=== PATIENT | male | born 1970 | race African-American/Black ===

== ENCOUNTER 2025-06-20 13:02 | Outpatient (REF) | payer OTHER, SELFPAY ==
[2025-06-27 05:43] LABS: Plasma Renin Activity 0.28 ng/mL/h (0.25-5.82)
== END 2025-06-20 13:03 | disposition home or self-care (01) ==
LOC: HO.HKASLDS 13:02
PROVIDERS: PCP Internal Medicine; Visit Provider Internal Medicine Nephrology
DX: I10 Essential (primary) hypertension (principal)
CPT/HCPCS: 36415; 82088; 82533; 84244; 84443

== ENCOUNTER 2025-06-20 13:02 | Outpatient (AMB) | payer OTHER, SELFPAY ==
[2025-06-20 13:33] VITALS: BP 132/90; PULSE 65; O2SAT 98; BMI 28.1
--- NOTE | 2025-06-20 13:33 | HO.NEPHOV_ITS ---
Vital Signs 06/20/25 13:33 Height 6 ft 1 in Weight 213 lb 6 oz BMI 28.1 BP 132/90 H Blood Pressure Location Lt brachial Position Sitting Pulse 65 Pulse Source Pulse Oximeter Pulse Oximetry (%) 98 Oxygen Delivery Method Room Air Intake Visit Reasons: ENP: Hypertension Studio Receptionist Required: No Accompanied by: Self / Same As Patient Allergies No Known Allergies Allergy (Verified 06/20/25 13:37) HPI Comments Details: I had the pleasure of seeing Dr Muniz in consultation for labile blood pressure. 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 He has been on multiple BP medications but the BP has been labile lately. He has no H/O hypokalemia, abnormal thyroid function or renal dysfunction. He has no H/O LVH, proteinuria, retinopathy, CAD, PAD, CVA, CHF or known SARBJIT. He has SOLIS and is on CPAP. He is active and is good with low sodium diet. He denies chest pain, weakness, palpitations, edema or orthostatic symptoms. He monitors his BP at home. [facility] Medical History (Updated 06/20/25 @ 13:40 by Lena Fuller MA) Prediabetes SOLIS (obstructive sleep apnea) Hypertension Family History Mother Hypertension Social History (Updated 06/20/25 @ 13:36 by Lena Fuller MA) Alcohol intake: never Patient Tobacco Use Status: Never used Tobacco Review of Systems Const All systems reviewed & are unremarkable except as noted in HPI and below Physical Exam Vital Signs: Last Vital Signs Pulse 65 06/20/25 13:33 BP 132/90 H 06/20/25 13:33 Pulse Ox 98 06/20/25 13:33 Oxygen Delivery Method Room Air 06/20/25 13:33 BMI result Body Mass Index 28.1 Const General: comfortable and no acute distress Orientation/consciousness: patient oriented x3 HEENT Head: Yes normocephalic Mouth: Normal oral and palatal mucosa present Eyes EOM: EOMs intact bilaterally Neck Neck: Yes supple Resp Auscultation: clear to auscultation bilaterally Cardio Jugular venous distension: no JVD Rate: regular rate Heart sounds: Murmur heart sound present GI Palpation (GI): Soft to palpation Auscultation: normal bowel sounds General: Yes no CVA tenderness Back/Spine/Pelvis Back: no CVA tenderness Skin General skin exam: no rashes or lesions noted Neuro General: patient oriented x3 and moves all extremities Extrem General: Yes no pedal edema Assessment & Plan Assessment & Plan (1) Hypertension: Code(s): I10 - Essential (primary) hypertension Category: Medical Qualifiers: Hypertension type: primary hypertension Qualified Code(s): I10 - Essential (primary) hypertension Plan Dr Muniz has hypertension since age of 31 years and is on multiple anti hypertensive medications. He has SOLIS and is on CPAP. He is active and is good with low sodium diet. He has no H/O thyroid disorder , hypokalemia or renal dysfunction. There is no documented evidence regarding proteinuria, LVH, retinopathy or renal dysfunction. I have ordered W/U including biobeat 24 hour BPM. I did not make any medication change today but further optimization of medication is pending evolving data. Answered all questions; F/U given Orders: Orders US renal doppler 3 Weeks I10 - Essential (primary) hypertension Renin 06/20/25 I10 - Essential (primary) hypertension TSH reflex Free T4 06/20/25 I10 - Essential (primary) hypertension US renal BI 3 Weeks I10 - Essential (primary) hypertension Aldost/Renin 06/20/25 I10 - Essential (primary) hypertension Aldosterone 06/20/25 I10 - Essential (primary) hypertension Cortisol Random 06/20/25 I10 - Essential (primary) hypertension AMB 24 HR B/P Monitor PLACEMENT 06/20/25 I10 - Essential (primary) hypertension Coding Level of Care Code New Pt Level 4 (89812) Diagnoses Primary hypertension I10 Hypertension type: primary hypertension
--- OUTSIDE RECORDS SUMMARY | 2025-06-20 13:48 | XMS_ITS ---
Author Name [facility] Organization Unknown History of Medication Use Medication Directions Dispensed Refills Start Date End Date [facility] amlodipine 10 mg-benazepril 20 mg capsule TAKE 1 CAPSULE BY MOUTH EVERY DAY 05/30/20 25 completed amoxicillin 875 mg-potassium clavulanate 125 mg tablet TAKE 1 TABLET BY MOUTH TWICE A DAY 05/30/20 25 completed benzonatate 100 mg capsule TAKE 2 CAPSULES BY MOUTH THREE TIMES PER DAY 05/30/20 25 completed candesartan 4 mg tablet TAKE 1 TABLET BY MOUTH EVERY DAY 05/30/20 25 completed doxycycline monohydrate 100 mg tablet TAKE 1 TABLET BY MOUTH TWICE A DAY 05/30/20 25 completed fluconazole 150 mg tablet TAKE 1 TABLET DAILY 05/30/20 25 completed hydrochlorothiazide 25 mg tablet TAKE 1 TABLET BY MOUTH EVERY DAY 05/30/20 25 completed levofloxacin 500 mg tablet TAKE 1 TABLET BY MOUTH EVERY DAY FOR 14 DAYS 05/30/20 25 completed metformin 850 mg tablet TAKE 1 TABLET BY MOUTH EVERY DAY IN THE MORNING 05/30/20 25 completed ofloxacin 0.3 % ear drops INSTILL 5 DROPS INTO AFFECTED EAR(S) 3 TIMES A DAY DIRECTED 05/30/20 25 completed trazodone 50 mg tablet TAKE 1 TO 2 TABLETS BY MOUTH EVERY DAY AT BEDTIME NEEDED FOR SLEEP 05/30/20 25 completed amlodipine 10 mg tablet TAKE 1 TABLET BY MOUTH EVERY DAY active atenolol 50 mg tablet TAKE 1.5 TABLETS BY MOUTH EVERY DAY active lisinopril 20 mg tablet TAKE 2 TABLETS BY MOUTH EVERY DAY active Problems Problem Status Onset Date Problem Type Date of Resoluti on Source Benign prostatic hyperplasia with outflow obstruction active 2025-05-30 ProblemAct [facility] Microscopic hematuria active 2025-05-30 ProblemAct [facility] Urgent desire to urinate active 2025-05-30 ProblemAct [facility] Encounters Encounter Type Encounter Reason Primary Diagnosis Location Date [facility], 02/2025 [facility]ulatory [facility] 080 02/2025 [facility]ulatory [facility] 0802/2025 [facility]ulatory [facility] 0801/2025 [facility]ulatory [facility] 01/2025 [facility]ulatory [facility] 04/26 [facility]ulatory [facility] 04/26 [facility]ulatory [facility] 04/26 [facility]ulatory [facility] 04/26 Care Team Organization Name Specialty Phone Email Start Date End Da te [facility] 05/15/2025
--- OUTSIDE RECORDS SUMMARY | 2025-06-20 13:48 | XMS_ITS | Encounter Summary ---
Author Organization [employer] Address [address] [place] [address] Care Team Providers Care Sap Analyst Name Role Phone Physician, Pcp Unknown Primary Care Provider Azul vailable Encounter Details Date Type Department Care Team (Late st Contact Info) Description 05/30/2025 Lab Requisition [facility] Main Lab [address] [place] [address] Joe Her MD [address] [place] [address] Other microscopic hematuria Social History Tobacco Use Types Packs/Day Years Used Date Smoking Tobacco: Never Assessed Sex and Gender Information Value Date Recorded Sex Assigned at Not on file Legal Sex Male 7:40 PM EDT Gender Identity Not on file Sexual Orientation Not on file documented as of this encounter Plan of Treatment Not on file documented as of this encounter Procedures Procedure Name Priority Date/Time Associated Diagnosis Comments URINALYSIS WITH REFLEX MICROSCOPIC AND CULTURE Routine 05/30/2025 1:20 PM EDT Other microscopic hematuria URINALYSIS WITH REFLEX MICROSCOPIC AND CULTURE Routine 05/30/2025 1:20 PM EDT Other microscopic hematuria documented in this encounter Results * (ABNORMAL) Urinalysis with reflex microscopic and culture (05/30/2025 1:20 PM EDT) Color, Urine Yellow Yellow, Colorless LAB URINALYSIS - AUTOMATED METHOD 05/30/2025 7:52 PM EDT [facility] Clarity, Urine Clear Clear LAB URINALYSIS - AUTOMATED METHOD 05/30/2025 7:52 PM EDT [facility] Specific [place] Urine 1.027 1.005 - 1.030 LAB URINALYSIS - AUTOMATED METHOD 05/30/2025 7:52 PM EDT [facility] pH, Urine 5.0(A) 5.0 - 8.0 pH LAB URINALYSIS - AUTOMATED METHOD 05/30/2025 7:52 PM EDT [facility] Leukocytes, Urine Negative Negative WBCs/mcL LAB URINALYSIS - AUTOMATED METHOD 05/30/2025 7:52 PM EDT [facility] Nitrite, Urine Negative Negative LAB URINALYSIS - AUTOMATED METHOD 05/30/2025 7:52 PM EDT [facility] Protein, Urine Negative Negative mg/dL LAB URINALYSIS - AUTOMATED METHOD 05/30/2025 7:52 PM EDT [facility] Glucose, Urine Negative Negative mg/dL LAB URINALYSIS - AUTOMATED METHOD 05/30/2025 7:52 PM EDT [facility] Ketones, Urine Negative Negative mg/dL LAB URINALYSIS - AUTOMATED METHOD 05/30/2025 7:52 PM EDT [facility] Blood, Urine Negative Negative mg/dL LAB URINALYSIS - AUTOMATED METHOD 05/30/2025 7:52 PM EDT [facility] Urine Urine specimen obtained by clean catch procedure / Unknown 05/30/2025 1:20 PM EDT 05/30/2025 7:43 PM EDT Joe Her MD LAB URINE ORDERABLES Final R esult [facility] [address] [place] [address], [place] [phone] documented in this encounter Visit Diagnoses Diagnosis Other microscopic hematuria documented in this encounter Care Teams Sap Analyst Relationship Specialty Start Date End Date Physician, Pcp Unknown PCP - General 05/30/25 documented as of this encounter
--- OUTSIDE RECORDS SUMMARY | 2025-06-20 13:48 | XMS_ITS | Clinical Summary ---
Author Organization [facility] Address [address] [place] [address] Phone Care Team Providers Care Distributor Publications Name Role Phone Physician, Pcp Unknown Primary Care Provider Azul vailable Encounters Date Type Department Care Team Description 05/30/2025 Lab Requisition [facility] Main Lab [address] [place] [address] Joe Her MD Other microscopic hematuria from Last 3 Months Social History Tobacco Use Types Packs/Day Years Used Date Smoking Tobacco: Never Assessed Sex and Gender Information Value Date Recorded Sex Assigned at Not on file Legal Sex Male 7:40 PM EDT Gender Identity Not on file Sexual Orientation Not on file Plan of Treatment Health Maintenance Due Date Last Done Comments DTaP,Tdap,and Td Vaccines (1 - Tdap) 1990 Hepatitis B Vaccines (1 of 3 - 19+ 3-dose series) 1990 Pneumococcal Vaccine: 50+ Ye ars (1 of 1 - PCV) 2021 Zoster Vaccines (1 of 2) 2021 COVID-19 Vaccine ( - 2023-2 5 season) 2024 Depression Screening 10/26/2024 Cholesterol Screening (Lipid Panel) 05/31/2025 Colorectal Cancer Screening: Colonoscopy 05/31/2025 HIV Screening 05/31/2025 Hepatitis C Screening 05/31/2025 Social Influencers of Health Screening 05/31/2025 Influenza Vaccine (#1) 2025 HIB Vaccines Aged Out No longer eligi ble based on patient's age to complete this topic HPV Vaccines Aged Out No longer eligi ble based on patient's age to complete this topic Hepatitis A Vaccines Aged Out No long er eligible based on patient's age to complete this topic IPV Vaccines Aged Out No longer eligi ble based on patient's age to complete this topic MMR Vaccines Aged Out No longer eligi ble based on patient's age to complete this topic Meningococcal ACWY Vaccine Aged Out N o longer eligible based on patient's age to complete this topic Meningococcal B Vaccine Aged Out No l onger eligible based on patient's age to complete this topic RSV Immunization Patients Un sarina 20 months Aged Out No longer eligible b ased on patient's age to complete this topic Varicella Vaccines Aged Out No longer eligible based on patient's age to complete this topic Procedures Procedure Name Priority Date/Time Associated Diagnosis Comments URINALYSIS WITH REFLEX MICROSCOPIC AND CULTURE Routine 05/30/2025 1:20 PM EDT Other microscopic hematuria URINALYSIS WITH REFLEX MICROSCOPIC AND CULTURE Routine 05/30/2025 1:20 PM EDT Other microscopic hematuria from Last 3 Months Results * (ABNORMAL) Urinalysis with reflex microscopic and culture (05/30/2025 1:20 PM EDT) Color, Urine Yellow Yellow, Colorless LAB URINALYSIS - AUTOMATED METHOD 05/30/2025 7:52 PM EDT [facility] Clarity, Urine Clear Clear LAB URINALYSIS - AUTOMATED METHOD 05/30/2025 7:52 PM EDT [facility] Specific [place] Urine 1.027 1.005 - 1.030 LAB URINALYSIS - AUTOMATED METHOD 05/30/2025 7:52 PM [facility] pH, Urine 5.0(A) 5.0 - 8.0 pH LAB URINALYSIS - AUTOMATED METHOD 05/30/2025 7:52 PM T [facility] Leukocytes, Urine Negative Negative WBCs/mcL LAB URINALYSIS - AUTOMATED METHOD 05/30/2025 7:52 PM EDT [facility] Nitrite, Urine Negative Negative LAB URINALYSIS - AUTOMATED METHOD 05/30/2025 7:52 PM T [facility] Protein, Urine Negative Negative mg/dL LAB URINALYSIS - AUTOMATED METHOD 05/30/2025 7:52 PM EDT [facility] Glucose, Urine Negative Negative mg/dL LAB URINALYSIS - AUTOMATED METHOD 05/30/2025 7:52 PM EDT [facility] Ketones, Urine Negative Negative mg/dL LAB URINALYSIS - AUTOMATED METHOD 05/30/2025 7:52 PM EDT [facility] Blood, Urine Negative Negative mg/dL LAB URINALYSIS - AUTOMATED METHOD 05/30/2025 7:52 PM EDT [facility] Urine Urine specimen obtained by clean catch procedure / Unknown 05/30/2025 1:20 PM EDT 05/30/2025 7:43 PM EDT Joe Her MD LAB URINE ORDERABLES Final R esult [facility] [address] [place] [address], [place] [phone] from Last 3 Months Insurance [employer] Care Teams Distributor Publications Relationship Specialty Start Date End Date Physician, Pcp Unknown PCP - General 05/30/25
== END 2025-06-20 14:52 | disposition home or self-care (01) ==
LOC: HO.HKAS 13:03
PROVIDERS: PCP Internal Medicine; Visit Provider Internal Medicine Nephrology
DX: I10 Essential (primary) hypertension (principal)
CPT/HCPCS: 99204

== ENCOUNTER → 2025-06-21 14:06 | Outpatient (BNVA) | payer OTHER, SELFPAY | PROVIDERS: PCP Internal Medicine; Visit Provider Internal Medicine Nephrology | DX: I10 Essential (primary) hypertension (principal) | CPT/HCPCS: 93786; 93788 ==

== ENCOUNTER 2025-07-07 14:06 | Outpatient (AMB) | payer OTHER, SELFPAY ==
--- NOTE | 2025-07-07 14:21 | HO.NEPHOV_ITS ---
Vital Signs 3 07/07/25 14:22 Height 6 ft 1 in Weight 213 lb BMI 28.1 BP 136/70 Blood Pressure Location Lt brachial Position Sitting Pulse 71 Pulse Source Pulse Oximeter Pulse Oximetry (%) 98 Oxygen Delivery Method Room Air Intake Visit Reasons: 2wk f/u-Conf w/ Chiropractic Practice Manager Required: No Accompanied by: Spouse Allergies No Known Allergies Allergy (Verified 07/07/25 14:21) Medication List - Last Reconciled 07/07/25 by Negrito Kevin MD amlodipine 10 mg PO DAILY atenolol 75 mg PO DAILY lisinopril 20 mg PO DAILY HPI Comments Details: I had the pleasure of seeing Dr Muniz in follow up for labile blood pressure. 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 He has been on multiple BP medications but the BP has been labile lately. He has no H/O hypokalemia, abnormal thyroid function or renal dysfunction. He has no H/O LVH, proteinuria, retinopathy, CAD, PAD, CVA, CHF or known SARBJIT. He has SOLIS and is on CPAP. He is active and is good with low sodium diet. He denies chest pain, weakness, palpitations, edema or orthostatic symptoms. He monitors his BP at home. He had a 24 hour BPM which showed well controlled BP. [facility] Medical History (Updated 06/20/25 @ 13:40 by Lena Fuller MA) Prediabetes SOLIS (obstructive sleep apnea) Hypertension Family History Mother Hypertension Social History Alcohol intake: never Patient Tobacco Use Status: Never used Tobacco Review of Systems Const All systems reviewed & are unremarkable except as noted in HPI and below Physical Exam Vital Signs: Last Vital Signs Pulse 71 07/07/25 14:22 BP 136/70 07/07/25 14:22 Pulse Ox 98 07/07/25 14:22 Oxygen Delivery Method Room Air 07/07/25 14:22 BMI result Body Mass Index 28.1 Const General: comfortable and no acute distress Orientation/consciousness: patient oriented x3 HEENT Head: Yes normocephalic Mouth: Normal oral and palatal mucosa present Eyes EOM: EOMs intact bilaterally Neck Neck: Yes supple Resp Auscultation: clear to auscultation bilaterally Cardio Jugular venous distension: no JVD Rate: regular rate GI Palpation (GI): Soft to palpation Auscultation: normal bowel sounds General: Yes no CVA tenderness Back/Spine/Pelvis Back: no CVA tenderness Skin General skin exam: no rashes or lesions noted Neuro General: patient oriented x3 and moves all extremities Extrem General: Yes no pedal edema Results Reviewed Results Reviewed: Assessment & Plan Assessment & Plan (1) Hypertension: Code(s): I10 - Essential (primary) hypertension Category: Medical Qualifiers: Hypertension type: primary hypertension Qualified Code(s): I10 - Essential (primary) hypertension Plan Dr Muniz has hypertension since age of 31 years and is on multiple anti hypertensive medications. He has SOLIS and is on CPAP. He is active and is good with low sodium diet. He has no H/O thyroid disorder , hypokalemia or renal dysfunction. There is no documented evidence regarding proteinuria, LVH, retinopathy or renal dysfunction. He had biobeat for 24 hour BPM- results were reviewed today( copy given to patient)- BP control optimal . Renal USS pending. I did not make any medication change today but suggested to increase lisinopril to 30 mg and cut back on Amlodipine 5 mg daily & C/W current dose of Atenolol. If that regimen is controlling BP, could come off Amlodipine and increase lisinopril to 40 mg along with Atenolol( to avoid polypharmacy). Answered all questions; F/U as on a needed basis. Coding Level of Care Code Est Pt Level 3 (95786) Diagnoses Primary hypertension I10 Hypertension type: primary hypertension
[2025-07-07 14:22] VITALS: BP 136/70; PULSE 71; O2SAT 98; BMI 28.1
--- OUTSIDE RECORDS SUMMARY | 2025-07-07 17:05 | XMS_ITS | Clinical Summary ---
Author Organization [facility] Address [address] [place] [address] Phone Care Team Providers Care Dialysis Social Worker Name Role Phone Physician, Pcp Unknown Primary Care Provider Azul vailable Encounters Date Type Department Care Team Description 05/30/2025 Lab Requisition [facility] Main Lab [address] [place] [address] Joe Her MD Other microscopic [...] 2021 Zoster Vaccines (1 of 2) 2021 Depression Screening 10/26/2024 Cholesterol Screening (Lipid Panel) 05/31/2025 Colorectal Cancer Screening: Colonoscopy 05/31/2025 HIV Screening 05/31/2025 Hepatitis C Screening 05/31/2025 Social Influencers of Health Screening 05/31/2025 COVID-19 Vaccine ( - 2023-2 5 season) 2025 Influenza Vaccine (#1) 2025 HIB Vaccines Aged [...] - AUTOMATED METHOD 05/30/2025 7:52 PM EDT [facility] Clarity, Urine Clear Clear LAB URINALYSIS - AUTOMATED METHOD 05/30/2025 7:52 PM EDT [facility] Specific [place] Urine 1.027 1.005 - 1.030 LAB URINALYSIS - AUTOMATED METHOD 05/30/2025 7:52 PM [facility] pH, Urine 5.0(A) 5.0 - 8.0 pH LAB URINALYSIS - AUTOMATED METHOD 05/30/2025 7:52 PM T [facility] Leukocytes, Urine Negative Negative WBCs/mcL LAB URINALYSIS - AUTOMATED METHOD 05/30/2025 7:52 PM EDT [facility] Nitrite, Urine Negative Negative LAB URINALYSIS - AUTOMATED METHOD 05/30/2025 7:52 PM T [facility] Protein, Urine Negative Negative mg/dL LAB URINALYSIS - AUTOMATED METHOD 05/30/2025 7:52 PM EDT [facility] Glucose, Urine Negative Negative mg/dL LAB URINALYSIS - AUTOMATED METHOD 05/30/2025 7:52 PM EDT [facility] Ketones, Urine Negative Negative mg/dL LAB URINALYSIS - AUTOMATED METHOD 05/30/2025 7:52 PM EDT [facility] Blood, Urine Negative Negative mg/dL LAB URINALYSIS - AUTOMATED METHOD 05/30/2025 7:52 PM EDT [facility] Urine Urine specimen obtained by clean catch procedure / Unknown 05/30/2025 1:20 PM EDT 05/30/2025 7:43 PM EDT Joe Her MD LAB URINE ORDERABLES Final R esult [facility] [address] [place] [address], [place] [phone] from Last 3 Months Insurance [employer] Care Teams Dialysis Social Worker Relationship Specialty Start Date End Date Physician, Pcp Unknown PCP - General 05/30/25
--- OUTSIDE RECORDS SUMMARY | 2025-07-07 17:05 | XMS_ITS | Encounter Summary ---
Author Organization [employer] Address [address] [place] [address] Care Team Providers Care Babbitter Name Role Phone Physician, Pcp Unknown Primary Care Provider Azul vailable Encounter Details Date Type Department Care Team (Late st Contact Info) Description 05/30/2025 Lab Requisition [facility] Main Lab [address] [place] [address] Joe Her MD [address] [place] [address] Other microscopic hematuria Social History Tobacco Use [...] - AUTOMATED METHOD 05/30/2025 7:52 PM EDT [facility] Clarity, Urine Clear Clear LAB URINALYSIS - AUTOMATED METHOD 05/30/2025 7:52 PM EDT [facility] Specific [place] Urine 1.027 1.005 - 1.030 LAB URINALYSIS - AUTOMATED METHOD 05/30/2025 7:52 PM EDT [facility] pH, Urine 5.0(A) 5.0 - 8.0 pH LAB URINALYSIS - AUTOMATED METHOD 05/30/2025 7:52 PM EDT [facility] Leukocytes, Urine Negative Negative WBCs/mcL LAB URINALYSIS - AUTOMATED METHOD 05/30/2025 7:52 PM EDT [facility] Nitrite, Urine Negative Negative LAB URINALYSIS - AUTOMATED METHOD 05/30/2025 7:52 PM EDT [facility] Protein, Urine Negative Negative mg/dL LAB URINALYSIS - AUTOMATED METHOD 05/30/2025 7:52 PM EDT [facility] Glucose, Urine Negative Negative mg/dL LAB URINALYSIS - AUTOMATED METHOD 05/30/2025 7:52 PM EDT [facility] Ketones, Urine Negative Negative mg/dL LAB URINALYSIS - AUTOMATED METHOD 05/30/2025 7:52 PM EDT [facility] Blood, Urine Negative Negative mg/dL LAB URINALYSIS - AUTOMATED METHOD 05/30/2025 7:52 PM EDT [facility] Urine Urine specimen obtained by clean catch procedure / Unknown 05/30/2025 1:20 PM EDT 05/30/2025 7:43 PM EDT Joe Her MD LAB URINE ORDERABLES Final R esult [facility] [address] [place] [address], [place] [phone] documented in this encounter Visit Diagnoses Diagnosis Other microscopic hematuria documented in this encounter Care Teams Babbitter Relationship Specialty Start Date End Date Physician, Pcp Unknown PCP - General 05/30/25 documented as of this encounter
== END 2025-07-07 14:44 | disposition home or self-care (01) ==
LOC: HO.HKA 14:07
PROVIDERS: PCP Internal Medicine; Visit Provider Internal Medicine Nephrology
DX: I10 Essential (primary) hypertension (principal)
CPT/HCPCS: 99213

== ENCOUNTER 2025-08-25 15:33 | Outpatient (REF) | payer OTHER, SELFPAY ==
--- NOTE | ~2025-08-25 | US_ITS ---
EXAMINATION: US RETROPERITONEAL LIMITED (RENAL ONLY) CLINICAL INFORMATION: Hypertension. COMPARISON: None available. TECHNIQUE: Grayscale renal ultrasound along with color Doppler imaging and spectral analysis was performed of the kidneys. FINDINGS: Exam is limited due to body habitus. RIGHT KIDNEY: 12.6 x 6.7 x 6.6 cm (SAG x AP x TRV). The kidney is normal in size, contour, and echogenicity. Renal cortical thickness is normal. No calculi or focal parenchymal lesions. No hydronephrosis. LEFT KIDNEY: 11.4 x 6 x 5.2 cm (SAG x AP x TRV). The kidney is normal in size, contour, and echogenicity. Renal cortical thickness is normal. No calculi or focal parenchymal lesions. No hydronephrosis. Vascular: Peak systolic velocity in the mid abdominal aorta is 124 cm/s. Right: Right renal artery peak systolic velocities are normal measuring 66, 35 and 36 cm/s. Renal artery to aorta ratio cannot be determined due to elevated peak systolic velocity in the aorta. Segmental resistive indices in the right kidney measure between 0.7 and 0.8, normal. The right renal vein is patent. Left: Left renal artery peak systolic velocities are normal measuring 75, 80 and 55 cm/s. Renal artery to aorta ratio cannot be determined due to elevated peak systolic velocity in the aorta. Segmental resistive indices in the kidney measure between 0.4 and 0.6 cm, normal. The left renal vein is patent. US/US renal doppler IMPRESSION: Normal renal ultrasound and renal Doppler exam. No evidence of renal artery stenosis. Electronically signed by: Kalyn Corbett MD 08/25/2025 04:28 PM EDT
--- NOTE | ~2025-08-25 | US_ITS ---
EXAMINATION: US RETROPERITONEAL LIMITED (RENAL ONLY) CLINICAL INFORMATION: Hypertension. COMPARISON: None available. TECHNIQUE: Grayscale renal ultrasound along with color Doppler imaging and spectral analysis was performed of the kidneys. FINDINGS: Exam is limited due to body habitus. RIGHT KIDNEY: 12.6 x 6.7 x 6.6 cm (SAG x AP x TRV). The kidney is normal in size, contour, and echogenicity. Renal cortical thickness is normal. No calculi or focal parenchymal lesions. No hydronephrosis. LEFT KIDNEY: 11.4 x 6 x 5.2 cm (SAG x AP x TRV). The kidney is normal in size, contour, and echogenicity. Renal cortical thickness is normal. No calculi or focal parenchymal lesions. No hydronephrosis. Vascular: Peak systolic velocity in the mid abdominal aorta is 124 cm/s. Right: Right renal artery peak systolic velocities are normal measuring 66, 35 and 36 cm/s. Renal artery to aorta ratio cannot be determined due to elevated peak systolic velocity in the aorta. Segmental resistive indices in the right kidney measure between 0.7 and 0.8, normal. The right renal vein is patent. Left: Left renal artery peak systolic velocities are normal measuring 75, 80 and 55 cm/s. Renal artery to aorta ratio cannot be determined due to elevated peak systolic velocity in the aorta. Segmental resistive indices in the kidney measure between 0.4 and 0.6 cm, normal. The left renal vein is patent. US/US renal BI IMPRESSION: Normal renal ultrasound and renal Doppler exam. No evidence of renal artery stenosis. Electronically signed by: Kalyn Corbett MD 08/25/2025 04:28 PM EDT
--- OUTSIDE RECORDS SUMMARY | 2025-08-25 15:38 | XMS_ITS | Clinical Summary ---
Author Organization [facility] Address [address] [place] [address] Phone Care Team Providers Care Career Placement Specialist Name Role Phone Physician, Pcp Unknown Primary Care Provider Azul vailable Encounters Date Type Department Care Team Description 05/30/2025 Lab Requisition [facility] [address] [place] [address] Joe Her MD Other microscopic [...] Health Maintenance Due Date Last Done Comments Colorectal Cancer Screening: Colonoscopy 1971 Hepatitis B Vaccines (1 of 3 - 19+ 3-dose series) 1990 Pneumococcal Vaccine: 50+ Years (1 of 1 - PCV) 2021 Zoster Vaccines (1 of 2) 2021 Depression Screening 10/26/2024 Cholesterol Screening (Lipid Panel) 05/31/2025 HIV Screening 05/31/2025 Hepatitis C Screening 05/31/2025 Social Influencers of Health Screening 05/31/2025 COVID-19 Vaccine (3 - 2024- season) 2025 01/24/2021, 01/02/2021 Influenza Vaccine (#1) 2025 , 10/01/2022, 09/05/2020, Additional history exists Hypertension/CHF/CAD Annual BMP Blood Test 07/10/2025 DTaP,Tdap,and Td Vaccines (2 - Td or Tdap) 09/04/2034 09/04/2024 RSV Immunization Adult Patients (1 - 1-dose 75+ series) 2046 HIB Vaccines Aged Out No longer eligi [...] to complete this topic RSV Immunization Patients Under 20 months Aged Out No longer eligible based on [...] - AUTOMATED METHOD 05/30/2025 7:52 PM EDT [facility] Clarity, Urine Clear Clear LAB URINALYSIS - AUTOMATED METHOD 05/30/2025 7:52 PM EDT [facility] Specific [place] Urine 1.027 1.005 - 1.030 LAB URINALYSIS - AUTOMATED METHOD 05/30/2025 7:52 PM EDT [facility] pH, Urine 5.0(A) 5.0 - 8.0 pH LAB URINALYSIS - AUTOMATED METHOD 05/30/2025 7:52 PM T [facility] Leukocytes, Urine Negative Negative WBCs/mcL LAB URINALYSIS - AUTOMATED METHOD 05/30/2025 7:52 PM EDT [facility] Nitrite, Urine Negative Negative LAB URINALYSIS - AUTOMATED METHOD 05/30/2025 7:52 PM EDT [facility] Protein, Urine Negative Negative mg/dL LAB URINALYSIS - AUTOMATED METHOD 05/30/2025 7:52 PM EDT [facility] Glucose, Urine Negative Negative mg/dL LAB URINALYSIS - AUTOMATED METHOD 05/30/2025 7:52 PM EDT [facility] Ketones, Urine Negative Negative mg/dL LAB URINALYSIS - AUTOMATED METHOD 05/30/2025 7:52 PM EDT [facility] Blood, Urine Negative Negative mg/dL LAB URINALYSIS - AUTOMATED METHOD 05/30/2025 7:52 PM EDT [facility] Urine Urine specimen obtained by clean catch procedure / Unknown 05/30/2025 1:20 PM EDT 05/30/2025 7:43 PM EDT us Joe Her MD LAB URINE ORDERABLES Final R esult [facility] [address] [place] [address], [place] [phone] from Last 3 Months Insurance [employer] Care Teams Career Placement Specialist Relationship Specialty Start Date End Date Physician, Pcp Unknown PCP - General 05/30/25
--- OUTSIDE RECORDS SUMMARY | 2025-08-25 15:38 | XMS_ITS | Data Portability ---
Author Organization [facility] Address [address] [place] [address] Care Team Providers Care Lead Advisor Name Role Phone BECKY CARNEY Primary Care Provider [phone] Assessment Encounter Date Assessment Date Assessment LastModified by Organization Details LastModified Time 05/30/2025 05/30/2025 Evaluation and management visit today is associated with current or anticipated ongoing medical care services related to a patient s single serious condition or a complex condition. [email or web address] Not available 05/30/2025 15:43:43 07/10/2025 07/10/2025 Evaluation and management visit today is associated with current or anticipated ongoing medical care services related to a patient s single serious condition or a complex condition. [email or web address] Not available 07/08/2025 15:08:08 Plan of Treatment Reminders Order Date Submit Date Provider Last Modified By Organization Details Last Modified Time Details Appointments OFFICE VISIT 15 2025 08:30A M Dr. Her Not available Not available Not available Lab urinal ysis, dipsti ck, auto 2024 025 [email or web address] [facility] [place], [address], [place], [address], 07/12/2025 12:42:48 urinal ysis comple te, reflex cultur e 2024 025 [email or web address] [facility], [address] [place], [address], 06/29/2025 11:22:50 urinal ysis, dipsti ck, auto 2024 025 [facility], [address], [address], [place], [address], 06/09/2025 11:09:07 Referral None record ed. Procedures bladde r scan (PROC) 2024 025 [facility] [place], [address], [place], [address], 07/12/2025 12:42:48 bladde r scan (PROC) 2024 025 [facility] [place], [address], [address], [place], [address], 06/09/2025 11:09:07 Surgeries None record ed. Imaging None record ed. Medication Orders None record ed. Patient TargetsNo targets recorded. Patient Instructions Encounter Date Encounter Id Patient Instructions Last Modified By Organization Details Last Modified Time 05/30/2025 [id number] You will be give n supplies to complete a bladder diary. Please do this on 2 days. The objective is to capture a normal day as well as a bothersome day. Will follow-up with me in approximately 6 to 8 weeks. [email or web address] Not available 05/30/2025 13:30:11 Reason for Referral None Reported. Results Created Date Observation Date Name Description Value Unit Range Abnormal Flag Note LastModifiedBy Organization Detail LastModifiedTime 05/30/2005/30/2025 URINA LYSIS WITH REFLE X MICRO SCOPI C AND CULTU RE color, urine Yellow yellow , colorl ess Not Available [facility] Dept [address], [place], [address], 05/30/2025 23:56:28 05/30/20 25 05/30/2025 URINA LYSIS WITH REFLE X MICRO SCOPI C AND CULTU RE clarity, urine Clear clear Not Available [facility] Dept [address] [place] [address] Pkwy, [facility] [place], [address], 05/30/2025 23:56:28 05/30/20 25 05/30/2025 URINA LYSIS WITH REFLE X MICRO SCOPI C AND CULTU RE specific gravity urine 1.027 1.005- 1.030 Not Available [facility] [address] [place] [address] Pkwy, [place], [address], 05/30/2025 23:56:28 05/30/20 25 05/30/2025 URINA LYSIS WITH REFLE X MICRO SCOPI C AND CULTU RE pH, urine 5.0 pH 5.0-8. 0 abnormal Not Available [facility] [address] [place], [place] [address]wy, [facility] [place], [address], 05/30/2025 23:56:28 05/30/20 25 05/30/2025 URINA LYSIS WITH REFLE X MICRO SCOPI C AND CULTU RE leukocytes, urine Negati ve WBCs/ mcL negati ve Not Available [facility] [address] [place], [place] [address]wy, [facility] [place], [address], 05/30/2025 23:56:28 05/30/20 25 05/30/2025 URINA LYSIS WITH REFLE X MICRO SCOPI C AND CULTU RE nitrite, urine Negati ve negati ve Not Available [facility] [address] [place], [place] [address]wy, [place], [address], 05/30/2025 23:56:28 05/30/20 25 05/30/2025 URINA LYSIS WITH REFLE X MICRO SCOPI C AND CULTU RE protein, urine Negati ve mg/dL negati ve Not Available [facility] [address] [place] [place] [address] [place] [address], 05/30/2025 23:56:28 05/30/20 25 05/30/2025 URINA LYSIS WITH REFLE X MICRO SCOPI C AND CULTU RE glucose, urine Negati ve mg/dL negati ve Not Available [facility]/S Dept [address] [place], [place] [address], [place], [address], 05/30/2025 23:56:28 05/30/20 25 05/30/2025 URINA LYSIS WITH REFLE X MICRO SCOPI C AND CULTU RE ketones, urine Negati ve mg/dL negati ve Not Available [facility] Dept [address] [place] [address], [place], [address], 05/30/2025 23:56:28 05/30/20 25 05/30/2025 URINA LYSIS WITH REFLE X MICRO SCOPI C AND CULTU RE blood, urine Negati ve mg/dL negati ve Not Available [facility]/S Dept [address] [place] [address] [place], [address], 05/30/2025 23:56:28 05/30/20 25 05/30/2025 URINA LYSIS WITH REFLE X MICRO SCOPI C AND CULTU RE note See Report [facility], [address] [place] [address] ord, [place] [address] Not Available [facility]/S Dept [address] [place] [address], [address], 05/30/2025 23:56:28 05/30/20 25 05/30/2025 urina lysis , dipst ick, auto Leukocytes Negati ve Not Available [facility] [place] [address], [place], [address], 05/30/2025 13:19:45 05/30/20 25 05/30/2025 urina lysis , dipst ick, auto Nitrite negati ve Not Available [facility] [address], [place], [address], 05/30/2025 13:19:45 05/30/20 25 05/30/2025 urina lysis , dipst ick, auto Urobilinogen .2 Not Available [facility] [place] [address], [place], [address], 05/30/2025 13:19:45 05/30/20 25 05/30/2025 urina lysis , dipst ick, auto Protein Negati ve Not Available [facility] [place] [address], [place], [address], 05/30/2025 13:19:45 05/30/20 25 05/30/2025 urina lysis , dipst ick, auto pH 5.5 Not Available [facility] [place] [address], [place], [address], 05/30/2025 13:19:45 05/30/20 25 05/30/2025 urina lysis , dipst ick, auto Blood Non-He molyze d: Trace Not Available [facility] [place] [address], [place], [address], 05/30/2025 13:19:45 05/30/20 25 05/30/2025 urina lysis , dipst ick, auto Specific [place] 1.025 Not Available [facility] [place] [address], [place], [address], 05/30/2025 13:19:45 05/30/20 25 05/30/2025 urina lysis , dipst ick, auto Ketone Negati ve Not Available [facility] [place] [address], [place], [address], 05/30/2025 13:19:45 05/30/20 25 05/30/2025 urina lysis , dipst ick, auto Bilirubin Negati ve Not Available [facility] [place] [address], [place], [address], 05/30/2025 13:19:45 05/30/20 25 05/30/2025 urina lysis , dipst ick, auto Glucose Negati ve Not Available [facility] [place] [address], [place], [address], 05/30/2025 13:19:45 05/30/20 25 05/30/2025 bladd er scan (PROC ) Urine Volume 28 Not Available [facility] [place] [address], [place], [address], 05/30/2025 13:19:44 07/10/20 25 07/10/2025 urina lysis , dipst ick, auto Leukocytes Negati ve Not Available [facility] [address], [place], [address], 07/10/2025 14:43:28 07/10/20 25 07/10/2025 urina lysis , dipst ick, auto Nitrite negati ve Not Available [facility] [address], [place], [address], 07/10/2025 14:43:28 07/10/20 25 07/10/2025 urina lysis , dipst ick, auto Urobilinogen .[address] [facility] [address], [place], [address], 07/10/2025 14:43:28 07/10/20 25 07/10/2025 urina lysis , dipst ick, auto Protein Negati ve Not Available [facility] [address], [place], [address], 07/10/2025 14:43:28 07/10/20 25 07/10/2025 urina lysis , dipst ick, auto pH 6.0 Not Available [facility] [address], [place], [address], 07/10/2025 14:43:28 07/10/20 25 07/10/2025 urina lysis , dipst ick, auto Blood Hemoly zed: Trace Not Available [facility] [address], [place], [address], 07/10/2025 14:43:28 07/10/20 25 07/10/2025 urina lysis , dipst ick, auto Specific [place] >1.030 Not Available [facility] [address], [place], [address], 07/10/2025 14:43:28 07/10/2007/10/2025 urina lysis , dipst ick, auto Ketone Negati ve Not Available [facility] [address], [place], [address], 07/10/2025 14:43:28 07/10/20 25 07/10/2025 urina lysis , dipst ick, auto Bilirubin Negati ve Not Available [facility] [address], [place], [address], 07/10/2025 14:43:28 07/10/20 25 07/10/2025 urina lysis , dipst ick, auto Glucose Negati ve Not Available [facility] [address], [place], [address], 07/10/2025 14:43:28 07/10/20 25 07/10/2025 bladd er scan (PROC ) Urine Volume 0 Not Available [facility] [place] [address], [place], [address], 07/10/2025 14:43:27 Result Notes None recorded. Problems Name Problem SNOMED Code Status Onset Date Resolution Date Notes Provider Name and Address Organization Details Recorded Time Urgent desire to urinate 62000751 Active 2024 VAL muñoz [facility] 13:19:40 Microscopic hematuria 678436839 Active 2024 VAL SANTOS null, [facility] 13:20:45 Benign prostatic hyperplasia with outflow obstruction 658378973 Active 2024 BLADIMIR MCFADDENCHISON null, [facility] 13:59:38 Urgent desire to urinate 62428489 Active 2024 BLADIMIR HARLEEN null, [facility] 13:59:38 Increased frequency of urination 512901635 Active 2024 Joe Her MD [address] [place], [address], [facility] 15:07:27 Problem Notes None recorded. Medical Equipment None Reported. Allergies No known drug allergies Medications Name Sig Start Date Stop Date Status Note LastModified by Organization Details LastModified Time trazodone 50 mg tablet TAKE 1 TO 2 TABLETS BY MOUTH EVERY DAY AT BEDTIME NEEDED FOR SLEEP 05/30 completed Not Available Not Available Not Available candesartan 4 mg tablet TAKE 1 TABLET BY MOUTH EVERY DAY 05/30 completed Not Available Not Available Not Available fluconazole 150 mg tablet TAKE 1 TABLET DAILY 05/30 completed Not Available Not Available Not Available lisinopril 20 mg tablet TAKE 2 TABLETS BY MOUTH EVERY DAY active Not Available Not Available No t Available ondansetron HCl 4 mg tablet TAKE 1 TABLET BY MOUTH THREE TIMES A DAY *MAX 18 EVERY 21 DAYS PER INSURANCE * active Not Available Not Available No t Available metformin 850 mg tablet TAKE 1 TABLET BY MOUTH EVERY DAY IN THE MORNING 05/30 completed Not Available Not Available Not Available doxycycline monohydrate 100 mg tablet TAKE 1 TABLET BY MOUTH TWICE A DAY 05/30 completed Not Available Not Available Not Available ofloxacin 0.3 % ear drops INSTILL 5 DROPS INTO AFFECTED EAR(S) 3 TIMES A DAY DIRECTED 05/30 completed Not Available Not Available Not Available amlodipine 10 mg tablet TAKE 1 TABLET BY MOUTH EVERY DAY active Not Available Not Available No t Available benzonatate 100 mg capsule TAKE 2 CAPSULES BY MOUTH THREE TIMES PER DAY 05/30 completed Not Available Not Available Not Available hydrochloro thiazide 25 mg tablet TAKE 1 TABLET BY MOUTH EVERY DAY 05/30 completed Not Available Not Available Not Available levofloxaci n 500 mg tablet TAKE 1 TABLET BY MOUTH EVERY DAY FOR 14 DAYS 05/30 completed Not Available Not Available Not Available ketoconazol e 2 % topical cream APPLY TO AFFECTED AREA TWICE A DAY active Not Available Not Available No t Available atenolol 50 mg tablet TAKE 1.5 TABLETS BY MOUTH EVERY DAY active Not Available Not Available No t Available amoxicillin 875 mg-potassiu m clavulanate 125 mg tablet TAKE 1 TABLET BY MOUTH TWICE A DAY 05/30 completed Not Available Not Available Not Available amlodipine 10 mg-benazepr il 20 mg capsule TAKE 1 CAPSULE BY MOUTH EVERY DAY 05/30 completed Not Available Not Available Not Available Vitals Date Recorded Body height Body mass index (BMI) Body weight Provider Name and Address Organization Details Last Updated DateTime 05/30/2025 187.96 cm 25.5 kg/m2 07246.[address] [facility] [employer] 05/30/2025 13:21:15 Social History None recorded. Functional Status None recorded. Mental Status None recorded. Family History Nothing Reported. Medical History No medical history recorded. Past Encounters Encounter ID Performer Location Encounter Start Date Encounter Closed Date Diagnosis/Indication Diagnosis SNOMED-CT Code Diagnosis ICD10 Code Diagnosis IMO Codes Diagnosis Note [id number] Joe Her MD [facility] [address] [place] [address] 05/30/2025 12:57:26 05/30/2025 13:44:57 Urgent desire to urinate 69207154 R39.15 334232 - Bladder diary 2x (one normal day, one bothersome day)- Follow-up in 6 weeks.Pt will defer medication at this time. I did advise him that I may recommend this vs pelvic floor physical therapy based on his bladder diary findings. Microscopic hematuria 19 9527900 R31.29 [id number] UA WITH REFLEX [id number] Joe Her MD [facility] [address] [place] [address] 07/10/2025 13:50:28 07/10/2025 15:15:19 Urgent desire to urinate 20746132 R39.15 365004 - Pt's voiding symptoms have improved. He will follow-up yearly. Increased frequency of urination 226561306 R35.0 746217 - See above. Microscopic hematuria 19 5200930 R31.29 365016 Formal urinalysis demonstrat ed no significan t microscopi c hematuria. Health Concerns Section Related Observation LastModified by Organization Detai ls LastModified Time None Recorded Concern Status LastModified by Organization Details LastModified Time None Recorded Advance Directives Directive None Recorded Payers Insurance Date Sequence Insurance Name Policy Number Policy Gomez Covered Member ID Gomez Member ID Guarantor Name 07/07/2025 1 [facility] (O) [id number] Jelly Kaylynn Flavio [id number] Zenon Muniz Notes Date Note Type Note Provider Name and Address Organization Details Recorded Time 05/30/2025 text/html ROS as noted in the [facility] 54 y/o male who was referred here for urinary frequency. I made the decision to obtain outside records. Based on my review of the referring provider's notes, it appears the pt complained of increased LUTS. He states that for the past 6 months, he has been experiencing a severe exacerbation of urinary frequency and urgency. He voids 8-16x per day. Although, he states he generally only voids up to 16x one day out of the week. He's not currently on any BPH medications. Joe Her MD [address] [place], [address], [facility] 05/30/2025 15:45:04 07/10/2025 text/html ROS as noted in the [facility] 54-year-old male follows up for sporadic urinary urgency and frequency. At his last visit he was instructed to complete to bladder diaries. He was asked to capture a normal voiding day as well as one of the sporadic instances of increased urinary urgency as frequency. He feels that his symptoms have improved over the past few weeks. On review of his bladder diary, his voiding frequency looks reasonable in relation to his fluid intake. At his last encounter, his dipstick urinalysis demonstrated possible microscopic hematuria. This was sent out for formal microscopy which showed no evidence of RBCs. Urine pH was notably low at 5.0. Otherwise unremarkable. AUA-SS = 0 QOL = 2SHIM = 24 Joe Her MD [address] [place], [address], [facility] - [facility] 07/10/2025 15:53:41
--- OUTSIDE RECORDS SUMMARY | 2025-08-25 15:38 | XMS_ITS | Encounter Summary ---
Author Organization [facility] Address [address] [place] [address] Care Team Providers Care Channel Cementer Insole Machine Name Role Phone Physician, Pcp Unknown Primary Care Provider Azul vailable Encounter Details Date Type Department Care Team (Late st Contact Info) Description 05/30/2025 Lab Requisition [facility] [address] [place] [address] Joe Her MD [address] [place] [address] Other microscopic hematuria Social History Tobacco Use [...] - AUTOMATED METHOD 05/30/2025 7:52 PM EDT [facility] Clarity, Urine Clear Clear LAB URINALYSIS - AUTOMATED METHOD 05/30/2025 7:52 PM EDT [facility] Specific [place] Urine 1.027 1.005 - 1.030 LAB URINALYSIS - AUTOMATED METHOD 05/30/2025 7:52 PM EDT [facility] pH, Urine 5.0(A) 5.0 - 8.0 pH LAB URINALYSIS - AUTOMATED METHOD 05/30/2025 7:52 PM EDT [facility] Leukocytes, Urine Negative Negative WBCs/mcL LAB URINALYSIS - AUTOMATED METHOD 05/30/2025 7:52 PM EDT [facility] Nitrite, Urine Negative Negative LAB URINALYSIS - AUTOMATED METHOD 05/30/2025 7:52 PM EDT [facility] Protein, Urine Negative Negative mg/dL LAB URINALYSIS - AUTOMATED METHOD 05/30/2025 7:52 PM EDT [facility] Glucose, Urine Negative Negative mg/dL LAB URINALYSIS - AUTOMATED METHOD 05/30/2025 7:52 PM EDT [facility] Ketones, Urine Negative Negative mg/dL LAB URINALYSIS - AUTOMATED METHOD 05/30/2025 7:52 PM EDT [facility] Blood, Urine Negative Negative mg/dL LAB URINALYSIS - AUTOMATED METHOD 05/30/2025 7:52 PM EDT [facility] Urine Urine specimen obtained by clean catch procedure / Unknown 05/30/2025 1:20 PM EDT 05/30/2025 7:43 PM EDT Joe Her MD LAB URINE ORDERABLES Final R esult [facility] [address] [place] [address], [place] [phone] documented in this encounter Visit Diagnoses Diagnosis Other microscopic hematuria documented in this encounter Care Teams Channel Cementer Insole Machine Relationship Specialty Start Date End Date Physician, Pcp Unknown PCP - General 05/30/25 documented as of this encounter
== END 2025-08-25 15:34 | disposition home or self-care (01) ==
LOC: HO.US 15:33
PROVIDERS: PCP Internal Medicine; Visit Provider Internal Medicine Nephrology
DX: I10 Essential (primary) hypertension (principal)
CPT/HCPCS: 76775; 93975

== ENCOUNTER → 2025-08-25 15:37 | Outpatient (BNV) | payer OTHER, SELFPAY | PROVIDERS: PCP Internal Medicine; Visit Provider Radiology Diagnostic Radiology | DX: I10 Essential (primary) hypertension (principal) | CPT/HCPCS: 76775; 93975 ==